=== PATIENT | male | born 1960 | race Caucasian/White ===

== ENCOUNTER → 2024-08-22 20:19 | Outpatient (REF) | payer BC, SELFPAY | LOC: MRI 20:19 | PROVIDERS: ATTENDING PHYSICIAN Family Medicine; FAMILY PHYSICIAN Family Medicine | DX: G50.0 Trigeminal neuralgia (principal); R51.9 Headache, unspecified | CPT/HCPCS: 70553; A9575 ==

== ENCOUNTER → 2025-01-15 15:13 | Outpatient (REF) | payer BC, SELFPAY | LOC: HWRAD 15:13 | PROVIDERS: ATTENDING PHYSICIAN Specialist; FAMILY PHYSICIAN Family Medicine | DX: R94.09 Abnormal results of other function studies of central nervous system (principal); G50.0 Trigeminal neuralgia | CPT/HCPCS: 70450 ==